=== PATIENT | male | born 1945 | race Caucasian/White ===

== ENCOUNTER 2024-05-09 18:39 | Emergency (ER) | payer MEDICARE, BC, SELFPAY ==
[2024-05-09 18:49] VITALS: BP 142/70; PULSE 80; RESP 18; TEMP 36.8; O2SAT 98
--- NOTE | 2024-05-09 19:30 | DI.CT_ITS ---
Exam(s) CT ABDOMEN PELVIS W EXAM: CT ABDOMEN PELVIS W CLINICAL HISTORY: large L inguinal hernia TECHNIQUE: Imaging Protocol: Axial computed tomography images with coronal and sagittal reformatted images were created and reviewed. CONTRAST MATERIAL: Intravenous: Omnipaque 350 Contrast volume:75 mL Oral: No COMPARISON: No exams were available for comparison FINDINGS: ABDOMEN: Lung Bases: There are calcified granulomas present. Liver: Normal density. There is a 1 cm peripherally enhancing nodule in the liver most consistent wit h a hemangioma. No suspicious hepatic masses are seen. There are calcified granuloma seen in the li cindy. Portal, Superior Mesenteric, and Splenic Veins: Unremarkable. Gallbladder and Biliary Tract: No radiodense calculus or dilation. Pancreas: Normal density, no abnormal calcifications or inflammatory process. Spleen: There are calcified granuloma in the spleen. Adrenals: No masses seen. Kidneys: Normal size, contour and axis. In the left kidney, there is a nonobstructing 3 mm stone in t he midpole. There is also a simple cyst in the lower pole. No follow-up is recommended. In the rig ht kidney, there is marked dilatation of the renal collecting system and ureter to the level of the u rinary bladder. No radiopaque obstructing stone is identified. There is mild enhancement of the wal l. There is delayed enhancement of the right kidney. No right nephrolithiasis is seen. Abdominal Aorta: Abdominal portion non-dilated. Atherosclerotic calcification is present. Bowel: There is a large left inguinal hernia extending into the scrotal sac and containing loops of b oth small bowel and sigmoid colon. There is diverticular disease seen in the sigmoid colon. Within the hernia there is a dilated loop of small bowel present. The small bowel is also dilated proximal to the hernia. The findings are consistent with obstruction. (Series 11, image 92). The colon is o f normal caliber. The stomach is incompletely distended limiting evaluation. There is no bowel wall thickening. No evidence of appendicitis. Peritoneal Cavity: No ascites, collection or mesenteric inflammatory response. No free air. Lymph Nodes: Within normal limits. Bones: Within normal limits for the patient's age. Soft Tissues: Unremarkable. PELVIS: Bladder: The urinary bladder is markedly distended. There is diffuse thickening of the wall of the u rinary bladder. No intraluminal masses are seen. There are diverticula seen in the urinary bladder. No bladder stones are present. Reproductive Organs: Unremarkable as visualized. Lymph Nodes: Within normal limits. Bones: Within normal limits for the patient's age. IMPRESSION: 1. There is a large left inguinal hernia extending into the left scrotal sac. The hernia contains po rtions of the sigmoid colon which show no evidence of obstruction or incarceration. 2. There is small bowel located within the hernia. Proximal to the hernia, the small bowel is dilate d consistent with small-bowel obstruction. No evidence of pneumoperitoneum. 3. Dilatation of the right renal collecting system to the level of the urinary bladder without radiop aque obstructing stone present. There is enhancement of the wall of the ureter and pyelectasis shoul d be considered. 4. Thickening of the wall of the urinary bladder. This may be due to chronic bladder outlet obstruct ion, but cystitis should also be considered. Please correlate clinically. 5. Diverticulosis of the colon without evidence of acute diverticulitis. RADIATION DOSE DELIVERED: 387.79mGy.cm Total DLP DATA REPOSITORY: All CT scans at this facility are submitted to the National Radiology Data Registry (NRDR) Dose Index Registry (DIR) with the [employer] (ACR). RADIATION OPTIMIZATION: All CT scans at this facility use at least one of these dose optimization te chniques: automated exposure control; mA and/or kV adjustment per patient size (includes targeted exa ms where dose is matched to clinical indication); or iterative reconstruction.
--- NOTE | 2024-05-09 19:36 | W.ED.GENAD ---
Discharge Plan Disposition Patient Disposition: Admit to [facility] Condition: Stable Discharge Details Clinical Impression: Hernia, Bowel obstruction, Urinary tract infection, Hydronephrosis of right kidney Primary Care Provider: Unknown,Unknown ED Provider: Kendall Ramirez Home Meds and New Rx's Prescriptions: No Action No Known Home Meds [facility] General Date/Time Provider Initiated Documentation: 05/09/24 18:53. HPI Narrative: 70 year-old male presents to ED today by POV/possibly brought by correctional facility staff in [place] all the way here, as he was incarcerated and had a growing large hernia- demanding medical care, with a chief complaint of large hernia with onset chronically. Quality described as very large scrotum, does not describe it as painful but has a straining type feeling worse with BM's and urination, no radiation to skin changes, erythema, warmth to touch, bruising, constipation, inability to pass gas. Severity is described as 0/10 for pain. Palliating factors include nothing specific attempted. Provoking factors include nothing specific. Events leading up to the incident/Associated Symptoms: Patient is asking to be admitted and have his surgery immediately, asking if he could have his surgery at [facility] arranged for tomorrow as well as they have a hernia clinic. Patient not anticoagulated. Related Data Home Medications ?Medication ?Instructions ?Recorded ?Confirmed Unknown [No Known Home Meds] 05/09/24 05/09/24 Allergies Allergy/AdvReac Type Severity Reaction Status Date / Time No Known Allergies Allergy Verified 05/09/24 18:56 General Stated Complaint: Male Reproductive Problem CARLY: 3 Review of Systems All systems reviewed & are unremarkable except as noted in HPI and below Exam Narrative Exam Narrative: GENERAL APPEARANCE: Well-nourished, non-toxic, awake and alert, atraumatic, no acute distress. SKIN: Warm, pink, dry, intact, without rashes/lesions/ulcerations. HEAD: Normocephalic, atraumatic, normal hair distribution for gender/age. EYES: Normal conjunctiva, no exudates on lids/lashes. ENT: Nares patent, no circumoral cyanosis, no facial swelling NECK: Supple, trachea midline, painless cervical ROM. LUNGS/CHEST: Lungs CTA bilaterally, non-labored respirations, normal A/P diameter, symmetrical expansion, no chest wall deformity HEART (CV/PV): Regular rate and rhythm without murmur, no peripheral edema, no JVD. ABDOMEN: Soft, non-distended, no guarding, NON-tender, no peritoneal signs, no CVA tenderness to percussion bilaterally, volley ball size scrotum with irreducible hernia, no skin changes, non-tender, last BM this afternoon. MSK: Normal ROM, no swelling/deformity to bilateral UEs or LEs, moving all extremities without weakness, no cyanosis, spine midline without tenderness, normal curvature. NEURO: Mental Status AAOx4 - alert to person, place, time, events No facial droop, no forehead involvement. Motor: No focal weakness - strength 5/5 in bilateral UEs and LEs, proximal and distal, symmetric. Sensory: sensation intact to light touch globally. Gait normal: patient ambulated without ataxia into ED room. PSYCH: euthymic, cooperative, pleasant, appropriate speech Course Vital Signs Vital signs: Vital Signs Temperature 36.8 C 05/09/24 18:49 Pulse 80 05/09/24 18:49 Respiratory Rate 18 05/09/24 18:49 Blood Pressure 142/70 H 05/09/24 18:49 Pulse Oximetry 98 05/09/24 18:49 Temperature 36.8 C 05/09/24 18:49 Pulse 80 05/09/24 18:49 Respiratory Rate 18 05/09/24 18:49 Blood Pressure 142/70 H 05/09/24 18:49 Pulse Oximetry 98 05/09/24 18:49 Oxygen Delivery Method Room Air 05/09/24 18:49 Oxygen Flow Rate 0 05/09/24 18:49 Pain Level 0 05/09/24 18:49 Medical Decision Making This dictation utilizes [id number] dictation software and may contain unedited grammatical errors. 70 year-old male presents to ED today by POV/possibly brought by correctional facility staff in [place] all the way here, as he was incarcerated and had a growing large hernia- demanding medical care, with a chief complaint of large hernia with onset chronically. Quality described as very large scrotum, does not describe it as painful but has a straining type feeling worse with BM's and urination, no radiation to skin changes, erythema, warmth to touch, bruising, constipation, inability to pass gas. Severity is described as 0/10 for pain. Palliating factors include nothing specific attempted. Provoking factors include nothing specific. Events leading up to the incident/Associated Symptoms: Patient is asking to be admitted and have his surgery immediately, asking if he could have his surgery at [facility] arranged for tomorrow as well as they have a hernia clinic.. Patients' medical history: no records found. Family and social history: noncontributory. Pertinent exam findings / vital signs include large inguinal hernia that is nontender, not reducible, no peritoneal signs to abdomen, nontoxic vitals, afebrile. Differential / pathologies of concern include inguinal hernia, incarceration. Diagnostic studies of: -CBC, CMP, lactate, UA, CT ABD/pelvis w. -CBC shows no leukocytosis shows a mild anemia -CMP without actionable abnormality -Lactate negative, do not suspect incarceration -UA shows a significant UTI Interventions of: -Given 1 g IV ceftriaxone for UTI -Had surgery on-call Dr. Stein review his CT ED Course/Assessment/Plan: 70-year-old male was brought here possibly by [place] [facility] from [facility] directly to [facility] ED waiting room for hernia evaluation- he states he was released from custody and was demanding medical care, and they brought him to his desired facility- or close to it I suspect as he originally wanted to reach [facility], he states he has been having bowel movements and able to pass gas and that he is hungry, radiology reads his hernia is having either full or partial obstruction within the hernia itself, I think the patient needs at least to have some p.o. contrast follow-through x-ray to see if there is true obstruction, he also has right hydronephrosis and a UTI, consulted with general surgeon on-call Dr. Dakota Stein as well as the hospitalist to see if we can keep this patient overnight for definitive obstructive study and possible hernia repair. Patient has made vague statements that if he is not satisfied with his care here or the plan or if he is not sure if he wants to let a surgeon here or operate on him that he will simply call 911 and have them bring him from [facility] ED to [facility]'s ED, I stated that this is likely an EMTALA violation and that it was unlikely to be a reality. Surgery on-call Dr. Stein is currently en route to the hospital to evaluate the patient, hospitalist Dr. Novoa is available in case the patient just needs observation overnight and is aware of the situation. I laid out options for the patient, 1.) He may have a partial obstruction in his hernia and it may warrant a follow-through study with p.o. contrast. 2,) Dr. Stein admits the patient and surgically intervenes. or 3.) patient leaves AGAINST MEDICAL ADVICE due to possibility of potentially fatal or life altering small bowel obstruction, incarcerated hernia, urinary tract infection with right hydronephrosis and makes his way to [facility] through unknown means. The patient verbalized understanding of this. Patient signed out to Dr. José Miguel Barron, with admission or OBS likely, vs AMA, disposition labeled as admit, just need accepting name and time, all parties aware. Findings not consistent with incarceration, sepsis, Justin's gangrene. Disposition of Hernia, Bowel Obstruction. Patient verbalized understanding of the plan and return to ED criteria and engaged in shared decision making. Medical Records Medical records reviewed: Yes I reviewed the patient's medical records. Imaging Data Radiologic Study: Attestation: I personally reviewed and interpreted this imaging study as follows: Imaging: CT Scan Radiologist's impression: Exam: CT Abdomen And Pelvis With Contrast Exam date and time: 05/09/2024 8:45 PM Age: 70 years old Clinical indication: Large L inguinal hernia TECHNIQUE: Imaging protocol: Computed tomography of the abdomen and pelvis with contrast. Contrast material: 350; Contrast volume: 75 ml; Contrast route: INTRAVENOUS (IV); COMPARISON: No relevant prior studies available. FINDINGS: Lungs: Small foci of ground-glass opacities in the left lung base noted, possibly aspiration, atelectasis pneumonia. Liver: Small calcifications noted in the liver. Hypodensity adjacent to the left falciform ligament may be focal fat deposition. Gallbladder and biliary ducts: The gallbladder is unremarkable. No calcified stones. No ductal dilation. Pancreas: No ductal dilation. No pancreatic lesion seen. Spleen: There are scattered foci of calcification in the spleen, which could represent prior chronic granulomatous disease. Adrenal glands: The adrenal glands are unremarkable. No defined mass. Kidneys and ureters: There is right hydronephrosis noted with right hydroureter and enhancement of the right ureteral burris. A 1.3 cm simple appearing cyst in the left kidney. Stomach and bowel: There is a dilated loop of small bowel noted measuring up to 4.3 cm in diameter with decompression noted in the inguinal hernia suggestive of bowel obstruction. Fluid-filled dilated loops of bowel also noted within the inguinal hernia. Appendix: No evidence of appendicitis. Intraperitoneal space: No free air. No significant fluid collection. Vasculature: No abdominal aortic aneurysm. Lymph nodes: No enlarged lymph nodes. Urinary bladder: The urinary bladder is dilated and asymmetric to the right. Bladder wall thickening noted, possibly secondary to acute versus chronic inflammation. Reproductive: Unremarkable as visualized. Bones/joints: No acute fracture. There is evidence of prior left femur internal fixation. Soft tissues: There is a large left inguinal hernia containing loops small and large bowel. IMPRESSION: 1. Findings suggestive of bowel obstruction with transition point within the large left inguinal hernia. Of note, this obstruction could be partial and clinical correlation is recommended. 2. Right hydronephrosis enhancement of right ureteral possibly representing acute inflammation. Clinical correlation recommended. 3. Small foci of ground-glass opacities in the left lung base noted, possibly atelectasis, pneumonia or aspiration. Correlate with clinical presentation. 4. THIS REPORT CONTAINS FINDINGS THAT MAY BE CRITICAL TO PATIENT CARE. The findings were verbally communicated via telephone conference with KENDALL RAMIREZ at 10:44 PM EST on 05/09/2024. The findings were acknowledged and understood. Dictated and Authenticated by: Kavya Burk MD. Lab Data Lab results reviewed: Yes I reviewed the patient's lab results. Labs: 05/09/24 20:15 Urine - Reflex from Ua Urine Culture - Pending Laboratory Tests Range/Units 05/09/24 05/09/24 19:48 20:15 WBC (4.4-10.8) 10^3/uL 7.90 RBC (4.36-5.78) 10^6/uL 4.49 Hgb (13.5-17.5) g/dL 12.5 L Hct (40.0-50.0) % 38.5 L MCV (80-95) fL 86 MCH (27.0-33.0) pg 27.8 MCHC (32.0-36.0) % 32.5 RDW (11.8-14.1) % 15.1 H Plt Count (130-400) 10^3/uL 241 MPV (8.0-11.0) fL 9.4 Immature Gran % % 0.5 Neutrophils % % 66.1 Lymphocytes % % 21.4 Monocytes % % 9.4 Eosinophils % % 1.8 Basophils % % 0.8 Nucleated RBC % (0.0-0.3) % 0.0 Absolute Neutrophils (1.2-6.7) 10^3/uL 5.23 Absolute Lymphocytes (1.2-3.4) 10^3/uL 1.69 Absolute Monocytes (0.1-0.8) 10^3/uL 0.74 Absolute Eosinophils (0.0-0.7) 10^3/uL 0.14 Absolute Basophils (0.0-0.2) 10^3/uL 0.06 VBG Lactate (0.6-1.4) mmol/L 0.6 Sodium (136-145) mmol/L 143 Potassium (3.5-5.1) mmol/L 4.3 Chloride (98-107) mmol/L 105 Carbon Dioxide (21.0-32.0) mmol/L 30.1 Anion Gap (3-11) mmol/L 7.9 BUN (7-18) mg/dL 23 H Creatinine (0.70-1.30) mg/dL 1.3 Est GFR (CKD-EPI 2020) (mL/min/1.73m2) 59.10 Glucose (74-106) mg/dL 83 Calcium (8.5-10.1) mg/dL 9.2 Total Bilirubin (0.2-1.0) mg/dL 0.58 AST (15-37) U/L 17 ALT (16-63) U/L 19 Alkaline Phosphatase (46-116) U/L 93 Total Protein (6.4-8.2) g/dL 7.8 Albumin (3.4-5.0) g/dL 3.1 L Urine Color (Yellow) Yellow Urine Clarity (Clear) Cloudy Urine pH (5-8) 6.0 Ur Specific [place] (1.005-1.025) 1.020 Urine Protein (Neg-Trace) mg/dL 100 H Urine Ketones (Negative) mg/dL Negative Urine Blood (Negative) Moderate H Urine Nitrite (Negative) Positive H Urine Bilirubin (Negative) Negative Urine Urobilinogen (Up to 0.2) mg/dL 0.2 Ur Leukocyte Esterase (Negative) Moderate H Urine RBC TNP Urine WBC (0-5) HPF >50 H Ur Epithelial Cells TNP Urine Crystals TNP Urine Bacteria TNP Urine Casts TNP Urine Mucus TNP Ur Culture Indicated? Yes Urine Glucose (Negative) mg/dL Negative Quality:SDOH Health Related Social Needs: Health related social needs problems related to housing/economic circumstances (Z59.89), problems finding work (Z56.9), feeling lonely/isolated (Z60.8) PFSH All Active Problems (Updated 05/09/24 @ 22:55 by SEBASTIEN Pittman) Hydronephrosis of right kidney (Acute) Urinary tract infection (Acute) Bowel obstruction (Acute) Hernia (Chronic) Social History Smoking/Tobacco Use Status: Never Smoking risk assessment performed?: Yes Alcohol Intake: never Substance use type: does not use Housing: other Additional Social history: recently released from corrections, from [facility]
[2024-05-09 19:55] LABS: Abs Immature Grans 0.04 10^3/uL (0.0-0.06); Absolute Basophil Count 0.06 10^3/uL (0.0-0.2); Absolute Eosinophil Count 0.14 10^3/uL (0.0-0.7); Absolute Lymphocyte Count 1.69 10^3/uL (1.2-3.4); Absolute Monocyte Count 0.74 10^3/uL (0.1-0.8); Absolute Neutrophil Count 5.23 10^3/uL (1.2-6.7); Basophils % 0.8 %; Eosinophils % 1.8 %; HCT 38.5 % (40.0-50.0); HGB 12.5 g/dL (13.5-17.5); Immature Grans % 0.5 %; Lymphocytes % 21.4 %; MCH 27.8 pg (27.0-33.0); MCHC 32.5 % (32.0-36.0); MCV 86 fL (80-95); MPV 9.4 fL (8.0-11.0); Monocytes % 9.4 %; Neutrophils % 66.1 %; Platelet Count 241 10^3/uL (130-400); RBC 4.49 10^6/uL (4.36-5.78); RDW 15.1 % (11.8-14.1); RDW-SD 47.4 fL
[2024-05-09 19:58] LABS: Lactate 0.6 mmol/L (0.6-1.4)
[2024-05-09 20:11] LABS: ALT 19 U/L (16-63); AST 17 U/L (15-37); Albumin 3.1 g/dL (3.4-5.0); Alkaline Phosphatase 93 U/L (46-116); Anion Gap 7.9 mmol/L (3-11); BUN 23 mg/dL (7-18); Bilirubin, Total 0.58 mg/dL (0.2-1.0); CO2 30.1 mmol/L (21.0-32.0); CREATININE 1.3 mg/dL (0.70-1.30); Calcium 9.2 mg/dL (8.5-10.1); Chloride 105 mmol/L (98-107); Glucose 83 mg/dL (74-106); Potassium 4.3 mmol/L (3.5-5.1); Sodium 143 mmol/L (136-145); Total Protein 7.8 g/dL (6.4-8.2)
[2024-05-09 20:25] LABS: Bilirubin Negative (Negative); Blood Moderate (Negative); Clarity Cloudy (Clear); Glucose Negative (Negative); Ketones Negative (Negative); Leukocyte Esterase Moderate (Negative); Nitrite Positive (Negative); Urobilinogen 0.2 mg/dL (Up to 0.2)
[2024-05-09 20:30] LABS: C & S Indicated? Yes; WBC >50 HPF (0-5)
[2024-05-09] MEDS: Omnipaque 350 MG/ML 100 ML BTL IJ (20:48)
[2024-05-09] MEDS: Normal Saline - Diluent 50 ML VIAL IJ (20:49)
[2024-05-09] MEDS: cefTRIAXone 1 GM/50 ML BAG IVPB (21:11)
[2024-05-09 21:12] VITALS: BP 125/74; PULSE 74
--- NOTE | 2024-05-09 22:51 | DI.VRAD_ITS ---
PROCEDURE INFORMATION: Exam: CT Abdomen And Pelvis With Contrast Exam date and time: 05/09/2024 8:45 PM Age: 70 years old Clinical indication: Large L inguinal hernia TECHNIQUE: Imaging protocol: Computed tomography of the abdomen and pelvis with contrast. Contrast material: 350; Contrast volume: 75 ml; Contrast route: INTRAVENOUS (IV); COMPARISON: No relevant prior studies available. FINDINGS: Lungs: Small foci of ground-glass opacities in the left lung base noted, possibly aspiration, atelectasis pneumonia. Liver: Small calcifications noted in the liver. Hypodensity adjacent to the left falciform ligament may be focal fat deposition. Gallbladder and biliary ducts: The gallbladder is unremarkable. No calcified stones. No ductal dilation. Pancreas: No ductal dilation. No pancreatic lesion seen. Spleen: There are scattered foci of calcification in the spleen, which could represent prior chronic granulomatous disease. Adrenal glands: The adrenal glands are unremarkable. No defined mass. Kidneys and ureters: There is right hydronephrosis noted with right hydroureter and enhancement of the right ureteral burris. A 1.3 cm simple appearing cyst in the left kidney. Stomach and bowel: There is a dilated loop of small bowel noted measuring up to 4.3 cm in diameter with decompression noted in the inguinal hernia suggestive of bowel obstruction. Fluid-filled dilated loops of bowel also noted within the inguinal hernia. Appendix: No evidence of appendicitis. Intraperitoneal space: No free air. No significant fluid collection. Vasculature: No abdominal aortic aneurysm. Lymph nodes: No enlarged lymph nodes. Urinary bladder: The urinary bladder is dilated and asymmetric to the right. Bladder wall thickening noted, possibly secondary to acute versus chronic inflammation. Reproductive: Unremarkable as visualized. Bones/joints: No acute fracture. There is evidence of prior left femur internal fixation. Soft tissues: There is a large left inguinal hernia containing loops small and large bowel. IMPRESSION: 1. Findings suggestive of bowel obstruction with transition point within the large left inguinal hernia. Of note, this obstruction could be partial and clinical correlation is recommended. 2. Right hydronephrosis enhancement of right ureteral possibly representing acute inflammation. Clinical correlation recommended. 3. Small foci of ground-glass opacities in the left lung base noted, possibly atelectasis, pneumonia or aspiration. Correlate with clinical presentation. 4. THIS REPORT CONTAINS FINDINGS THAT MAY BE CRITICAL TO PATIENT CARE. The findings were verbally communicated via telephone conference with RAMIREZ, STEVEN at 10:44 PM EST on 05/09/2024. The findings were acknowledged and understood. Dictated and Authenticated by: Kavya Burk MD. Ordering:DANIEL Argueta MD
--- NOTE | 2024-05-10 00:46 | W.EDPROG ---
Date of service: 05/10/24 Time of Service: 02:31 Medical Decision Making Patient signed out to me pending surgical consultation from Dr. Stein. Patient had presented after being released from [employer] custody and requested evaluation for a large right inguinal hernia. He was found to have a urinary tract infection. Preliminary radiology read of his CT scan suggested obstruction for which Dr. Stein was consulted. Patient has been seen by Dr. Stein who was able to completely reduce the hernia without difficulty. Unfortunately returned as soon as patient stood up. But given the easy reduction with no vomiting or abdominal pain is felt patient does not have obstruction and is a candidate for outpatient repair of his hernia. He should be treated for UTI prior to having the surgery. He does not meet admission criteria but given that he was just released from [employer] custody after being incarcerated unclear whether he has resources available prior to discharge. Therefore, he has received a dose of IV ceftriaxone for his UTI. He will be continued on cefpodoxime 200 mg p.o. twice daily for 7 days. Case management consult has been requested to help with disposition and to be sure he has a safe discharge in place. Subsequently will follow-up with surgery as outpatient for arrangements for hernia repair. Quality:SDKY Health Related Social Needs: Health related social needs problems related to housing/economic circumstances (Z59.89), problems finding work (Z56.9), feeling lonely/isolated (Z60.8) Discharge Plan Disposition Condition: Stable Discharge Details Chief Complaint: Male Reproductive Problem Clinical Impression: Hernia, Urinary tract infection, Hydronephrosis of right kidney Primary Care Provider: Unknown,Unknown ED Provider: Tu Barron Home Meds and New Rx's Prescriptions: No Action No Known Home Meds Discharge Instructions Referrals: [facility] [Provider Group]
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
[2024-05-10 00:49] VITALS: BP 146/55; PULSE 64; RESP 18; O2SAT 99
[2024-05-10 03:05] VITALS: BP 118/56; RESP 18
[2024-05-10 04:03] VITALS: BP 91/47; RESP 18
[2024-05-10 06:35] VITALS: BP 102/58; PULSE 76; RESP 18; O2SAT 96
--- NOTE | 2024-05-10 07:12 | W.EDPROG ---
Date of service: 05/10/24 Time of Service: 07:12 Medical Decision Making Care assumed from off going provider. Patient is a 70-year-old gentleman recently released from [employer] custody. Brought to this facility by [employer] with no clear life disposition plan. Patient has no medications or prescriptions provided to him by [employer]. He presented with inguinal pain and was found to have an incarcerated hernia that was reduced by general surgery. He will be referred for outpatient operative management of this hernia. He is also noted to have a urinary tract infection. First dose of antibiotic given and will be discharged with antibiotics. Current disposition pending case management evaluation and assistance. 1150 Patient has been evaluated by case management and ride home has been arranged. Will send prescription to the pharmacy to [facility]. The patient will be contacted by general surgery clinic for follow-up appointment for further evaluation and treatment of his ongoing hernia. The patient denies any other medications that he might need. Quality:SDOH Health Related Social Needs: Health related social needs problems related to housing/economic circumstances (Z59.89), problems finding work (Z56.9), feeling lonely/isolated (Z60.8) Discharge Plan Disposition Patient Disposition: Home Condition: Stable Discharge Details Clinical Impression: Hernia, Urinary tract infection, Hydronephrosis of right kidney Primary Care Provider: Unknown,Unknown ED Provider: Blade Burnett [place] Meds and New Rx's Prescriptions: New cefpodoxime 200 mg tablet 200 mg PO BID 7 Days Qty: 14 0RF Rx Instructions: must administer with a meal/food Discharge Instructions Additional Instructions: An antibiotic for your UTI has been sent to the pharmacy, please pick this up and start this medication daily. Transportation for you has been arranged home to [place] You will be contacted with your follow-up in general surgery clinic for surgical management of your hernia Referrals: [facility] [Provider Group]
[2024-05-10 09:34] VITALS: BP 127/63; PULSE 85; RESP 18; O2SAT 96
--- NOTE | 2024-05-10 10:10 | NUR.NOTE ---
Nursing Note: Report and transfer of care from Bea Ann RN to Ella Greene RN at this time.
[2024-05-10 10:31] VITALS: BP 110/61; PULSE 84; RESP 16; O2SAT 96
--- NOTE | 2024-05-10 13:50 | PDOC.CMPRO ---
Date of service: 05/10/24 Time of Service: 13:50 Care Management Progress Note Progress Note Text Progress Note Text: KWAME was asked to meet with Cliff by the ED provider. He presented to the [facility] ED with a hernia. This was reduced temporarily however needs surgical intervention as an outpatient. Cliff lives alone in [place] and does not have any transportation back to [place]. He does not have a PCP either or any regular transportation. CM coordinated transportation to [place] with [facility] utilizing an [facility] authorization for the transport. KWAME also provided Cliff with information about a PCP practice in [place] as well as contact information for surgical services to arrange for a follow up visit. Social Determinants of Health Screening Social Determinants of Health last assessed: 05/10/24 Will the Patient Participate in the Screening?: Yes Do you worry about having a steady place to live?: no Problems where you live: no known problems In the past 12 months, have you had to go without electric, gas, oil or water in your home?: no Have you or anyone in your house had to go without enough food to eat?: no Has lack of transportation kept you from medical appointments or from doing things needed for daily living?: no Has anyone in your life made you feel unsafe or unsupported?: no How hard is it for you to pay for the very basics like food, housing, medical care, and heating? Would you say it is:: Very hard Do you want help finding or keeping work or a job?: Yes, help finding work If for any reason you need help with day-to-day activities such as bathing, preparing meals, shopping, managing finances, etc., do you get the help you need?: I get all the help I need How often do you feel lonely or isolated from those around you?: Sometimes Do you speak a language other than Azeri at home?: No Does the patient want assistance with any of the above?: No Health Related Social Needs Health related social needs: problems related to housing/economic circumstances (Z59.89), problems finding work (Z56.9) and feeling lonely/isolated (Z60.8)
== END 2024-05-10 12:44 | disposition home or self-care (01) ==
PROVIDERS: Physician Assistant; Emergency Provider Emergency Medicine
DX: K40.90 Unilateral inguinal hernia, without obstruction or gangrene, not specified as recurrent (principal); N39.0 Urinary tract infection, site not specified; N13.2 Hydronephrosis with renal and ureteral calculous obstruction
CPT/HCPCS: 00123; 80053; 96365; 99284; 99285; 74177; 81003; 81015; 83605; 85025; 87086; J0696; J3490